=== PATIENT | male | born 1985 | race Caucasian/White ===

== ENCOUNTER 2016-10-17 11:18 | Emergency (ER) | payer OTHER ==
[~2016-10-17] VITALS: Ht 177.8 cm; Wt 65.8 kg
--- NOTE | 2016-10-17 11:47 | ED GENERAL ADULT ---
History of Present Illness General Chief Complaint: ETOH/Drug Related Complaint Stated Complaint: ETOH, DRUG DETOX Source: patient, family Exam Limitations: no limitations Vital Signs & Intake/Output Vital Signs & Intake/Output Vital Signs Date Time Temp Pulse Resp B/P B/P Pulse O2 O2 Flow FiO2 Mean Ox Delivery Rate 10/18 0809 97.8 107 20 130/77 / 0808 98.4 107 18 130/77 100 Room Air / 0613 97.1 84 18 134/90 /16 0612 97.3 84 18 134/90 /16 0243 96.7 91 18 125/80 98 Room Air / 0026 97.5 98 18 135/85 /16 0026 97.5 98 18 135/85 98 Room Air / 2230 96.0 100 18 133/91 / 2230 96.0 100 18 133/91 98 Room Air 10/17 2048 97.2 95 16 117/86 / 2048 97.2 95 16 117/86 97 Room Air 10/17 1822 99.3 106 18 120/73 10/17 1819 99.3 106 18 120/73 98 Room Air 10/17 1609 97.5 92 18 117/74 97 Room Air / 1600 97.5 92 18 117/74 05/ 1400 98.0 100 20 107/55 05/ 1357 98.0 100 20 107/55 98 Room Air 10/17 1205 Room Air 10/17 1200 97.7 120 16 152/76 05/15 1123 97.7 120 16 152/76 97 Room Air ED Intake and Output 10/18 0000 10/17 1200 Intake Total Output Total Balance Patient 145 lb Weight Weight Reported by Patient Measurement Method Allergies Coded Allergies: iodine (Severe, VOMITING 10/17/16) Triage Note: 31 Y/O MALE ALCOHOL; STATES HE USES UP TO 2MG KLONOPIN DAILY AND UP TO 1L ALCOHOL DAILY - TODAY HAS HAD 1 MG KLONIPIN AND 1/2 LITER. LAST INGESTION APPROX 15 MIN AGO. PT REPORTS HX SEIZURES, LAST "MAYBE 3 DAYS AGO IN MY SLEEP". PT DENIES SI/HI. C/O "EXTREME ANXIETY". HR 120'S. DENIES OTHER COMPLAINTS. Triage Nurses Notes Reviewed? yes Onset: Abrupt Duration: week(s): Timing: recent history HPI: 10/17/16 12:30 PM 31-year-old male requesting detox from alcohol and benzodiazepines. The patient states he drinks a liter of alcohol daily and also takes benzodiazepines. He takes one to one and a half Klonopin per day. He says he last drank at 9:30 this morning. He denies cocaine or opiates. The onset of the symptoms were abrupt, the duration has been weeks, the severity is significant; as his symptoms required to come to the emergency department for care. He has no shortness of breath chest pain or other complaints at this time. He does say that he has a history of withdrawal seizures. He says he recently had rehabilitation at [facility] where he was admitted in June of this year. (ZACARIAS ROYAL DO) Reconcile Medications No Known Home Medications (NYASIA MILLER,JOSE) Past History Travel History Traveled to [facility] past 21 day No Medical History Any Pertinent Medical History? 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 No (ZACARIAS ROYAL DO) Review of Systems Review of Systems Constitutional: Reports: no symptoms. EENTM: Reports: no symptoms. Respiratory: Reports: no symptoms. Cardiovascular: Reports: no symptoms. GI: Reports: no symptoms. Genitourinary: Reports: no symptoms. Musculoskeletal: Reports: no symptoms. Skin: Reports: no symptoms. Neurological/Psychological: Reports: no symptoms. Hematologic/Endocrine: Reports: no symptoms. Immunologic/Allergic: Reports: no symptoms. (ZACARIAS ROYAL DO) Physical Exam Physical Exam General Appearance: well developed/nourished, alert, awake, mild distress Head: atraumatic, normal appearance Eyes: Bilateral: normal appearance, PERRL, EOMI. Ears, Nose, Throat: normal pharynx, normal ENT inspection Neck: normal inspection, supple, full range of motion Respiratory: normal breath sounds, chest non-tender, no respiratory distress Cardiovascular: regular rate/rhythm Peripheral Pulses: 4+ radial (R), 4+ radial (L) Gastrointestinal: soft, non-tender Back: normal range of motion Extremities: normal inspection, normal range of motion Neurologic/Psych: no motor/sensory deficits, awake, alert, oriented x 3 Skin: intact, normal color, warm/dry Core Measures ACS in differential dx? No CVA/TIA Diagnosis: No Severe Sepsis Present: No Septic Shock Present: No (GENNY LESETR,ZACARIAS Sexton) Progress Differential Diagnoses I considered the following diagnoses in my evaluation of the patient: [ Benzodiazepine dependency, alcohol dependency] Plan of Care: Orders Procedure Date/time Status Pathway - chart 10/18 0037 Active CIWA 10/17 1530 Active CIWA 10/17 1234 Active URINE DRUG SCREEN FOR ER ONLY 10/17 1234 Complete ETHANOL 10/17 1234 Complete COMPREHENSIVE METABOLIC PANEL 10/17 1234 Complete CBC WITHOUT DIFFERENTIAL 10/17 1234 Complete AMYLASE 10/17 1234 Complete Current Medications Sig/Loren Start time Last Medication Dose Stop Time Status Admin Lorazepam 2 MG Q2P PRN 10/18 0045 AC (Ativan) Lorazepam 1 MG Q2P PRN 10/18 0045 AC 10/18 (Ativan) 0639 Laboratory Tests 10/17/16 1509: Urine Opiates Screen < 100.00, Methadone Screen < 40, Barbiturate Screen < 60, Ur Phencyclidine Scrn < 6.00, Amphetamines Screen < 100, U Benzodiazepines Scrn < 85, Urine Cocaine Screen < 50, Urine Cannabis Screen < 5.00 10/17/16 1253: Anion Gap 18 H, Estimated GFR > 60, BUN/Creatinine Ratio 11.3, Glucose 89, Calcium 10.0, Total Bilirubin 0.6, AST 93 H, ALT 87 H, Alkaline Phosphatase 76 , Total Protein 7.3, Albumin 4.6, Globulin 2.7, Albumin/Globulin Ratio 1.7, Amylase 62, CBC w Diff NO MAN DIFF REQ, RBC 4.86, MCV 92.7, MCH 31.6 H, RDW 14.1, MPV 7.9, Gran % 57.1, Lymphocytes % 22.0, Monocytes % 20.0 H, Eosinophils % 0.3, Basophils % 0.6, Absolute Granulocytes 2.1, Absolute Lymphocytes 0.8 L, Absolute Monocytes 0.7 H, Absolute Eosinophils 0, Absolute Basophils 0, PUBS MCHC 34.2, Serum Alcohol 224.0 9:17 AM Transport here from [facility]. To go to rehab. (JOSE BETHEA MD) Initial ED EKG: none (ZACARIAS ROYAL DO) Differential Diagnoses I considered the following diagnoses in my evaluation of the patient: Hand-Off Endorsed To: JOSE BETHEA MD Endorsed Time: 0700 Pending: other (to etoh care) (DAJA MILLER,KATE Evans) Departure Departure Condition: Stable Clinical Impression Primary Impression: Alcohol dependency Referrals: PATIENT HAS NO PRIMARY CARE DR (PCP/Family) Departure Forms: Customer Survey General Discharge Information Comments 10/17/16 4:30 PM PATIENT WILL FOLLOW UP AT [facility] TODAY FOR ADMISSION. CIWA 2 , ETOH 150. 10/17/16 6 pm The patient will be picked up to get [facility] in the a.m. The patient was signed out to Dr. Segura at 7 PM. (ZACARIAS ROYAL DO) Departure Comments 10/19/16, 7AM... pt to go to [facility] in AM. Pt signed out to dr. bethea. (DAJA MILLER,KATE Evans) Departure Disposition: HOME OR SELF CARE Prescriptions: Current Visit Scripts No Known Home Medications (JOSE BETHEA MD) Critical Care Note Critical Care Note Critical Care Time: non-applicable (ZACARIAS ROYAL DO)
[2016-10-17 12:59] LABS: ABSOLUTE BASOPHIL COUNT 0 /CUMM (0.0-0.2); ABSOLUTE EOSINOPHIL COUNT 0 /CUMM (0.0-0.7); ABSOLUTE GRANULOCYTE CT 2.1 /CUMM (1.4-6.5); ABSOLUTE LYMPH COUNT 0.8 /CUMM (1.2-3.4); ABSOLUTE MONOCYTE COUNT 0.7 /CUMM (0.10-0.60); BASOPHIL % 0.6 % (0.0-2.0); EOSINOPHIL % 0.3 % (0-5); GRANULOCYTE % 57.1 % (42.2-75.2); MEAN CORPUSCULAR HGB 31.6 PG (27.0-31.0); MEAN CORPUSCULAR HGB CONC 34.2 G/DL (33.0-37.0); MEAN CORPUSCULAR VOLUME 92.7 FL (80.0-94.0); MEAN PLATELET VOLUME 7.9 FL (7.4-10.4); PLATELET COUNT 149 /CUMM (130-400); RBC DISTRIBUTION WIDTH 14.1 % (11.5-14.5); RED BLOOD CELL CT 4.86 /CUMM (4.70-6.10); WHITE BLOOD CELL COUNT 3.6 /CUMM (4.8-10.8)
[2016-10-18 09:26] VITALS: BP 126/72
== END 2016-10-18 09:32 ==
LOC: ERH 11:18
PROVIDERS: Emergency Medicine
DX: F10.20 Alcohol dependence, uncomplicated (principal)
CPT/HCPCS: 80307; G0480; J3101